=== PATIENT | female | born 2000 | race African-American/Black ===

== ENCOUNTER 2019-04-24 18:16 | Emergency (ER) | payer MEDICAID ==
[~2019-04-24] VITALS: Ht 167.6 cm; Wt 71.0 kg
[2019-04-24 18:32] VITALS: BP 138/79
== END 2019-04-24 23:22 | disposition left against medical advice (07) ==
LOC: ER 18:16
DX: R11.10 Vomiting, unspecified (principal); R53.1 Weakness; R52 Pain, unspecified; Z53.21 Procedure and treatment not carried out due to patient leaving prior to being seen by health care provider

== ENCOUNTER 2019-04-25 15:23 | Emergency (ER) | payer MEDICAID ==
[~2019-04-25] VITALS: Ht 167.6 cm; Wt 71.0 kg
[2019-04-25] MEDS ORDERED: ONDANSETRON 4MG ODT PO NR (18:45)
[2019-04-25 19:50] VITALS: BP 135/71
== END 2019-04-25 19:52 | disposition home or self-care (01) ==
LOC: ER 15:23
DX: R51 Headache (principal); R11.2 Nausea with vomiting, unspecified
CPT/HCPCS: 87804; 99283; Q0162

== ENCOUNTER 2020-03-28 10:50 | Emergency (ER) | payer BC, MEDICAID ==
[~2020-03-28] VITALS: Ht 165.1 cm; Wt 82.0 kg
[2020-03-28 15:55] LABS: BASOPHILS % 0.9 % (0.0-2.0); EOSINOPHILS % 0.6 % (0.0-5.0); HEMATOCRIT. 41.9 % (36.0-48.0); HEMOGLOBIN. 13.7 g/dL (12.0-16.0); MEAN CORPUSCULAR HEMOGLOBIN 27.4 pg (28.0-32.0); MEAN CORPUSCULAR VOLUME 83.7 fL (81.0-99.0); MONOCYTES % 5.4 % (2.0-8.0); NEUTROPHILS % 47.1 % (40.0-76.0); RED BLOOD CELL COUNT 5.01 mill/uL (4.2-5.4)
[2020-03-28 16:02] LABS: CHLORIDE 105 mEq/L (98-107)
[2020-03-28 16:14] LABS: HCG SCREEN NEGATIVE
[2020-03-28] MEDS ORDERED: IOHEXOL-350 100 ML BOTTLE ONE ×2 (22:59→23:57)
[2020-03-29 01:07] VITALS: BP 125/72
== END 2020-03-29 01:08 | disposition home or self-care (01) ==
LOC: ER 11:01
DX: R07.89 Other chest pain (principal); Z86.19 Personal history of other infectious and parasitic diseases
CPT/HCPCS: 36415; 71045; 71275; 80048; 84484; 84703; 85025; 85379; 93005; 93970; 99285; Q9967

== ENCOUNTER 2020-06-14 00:52 | Emergency (ER) | payer BC, MEDICAID ==
[~2020-06-14] VITALS: Ht 167.6 cm; Wt 86.0 kg
[2020-06-14] MEDS ORDERED: KETOROLAC 60MG/2ML VIAL IM STA (02:51)
[2020-06-14] MEDS ORDERED: ONDANSETRON 4MG ODT PO STA (02:51)
[2020-06-14] MEDS ORDERED: AZITHROMYCIN 500 MG TABLET PO ONE (03:00)
[2020-06-14] MEDS ORDERED: LIDOCAINE HCL 1% 20ML VIAL (Pyxis) INJ INFIL ONE (03:00)
[2020-06-14] MEDS ORDERED: CEFTRIAXONE SODIUM 500 MG/VIAL IM ONE (03:00)
[2020-06-14 03:24] VITALS: BP 144/85
[2020-06-14 03:46] LABS: CLARITY URINE CLOUDY (CLEAR); COLOR URINE YELLOW (YELLOW); KETONES URINE TRACE (NEGATIVE); LEUKOCYTE ESTERASE URINE 2+ (NEGATIVE); NITRITE URINE NEGATIVE (NEGATIVE); OCCULT BLOOD URINE NEGATIVE (NEGATIVE); PROTEIN URINE NEGATIVE (NEGATIVE); SPECIFIC GRAVITY URINE 1.031 (1.005-1.030)
[2020-06-14] MEDS ORDERED: DIF15 MT (04:18)
[2020-06-14] MEDS ORDERED: SULF1TAB48 PO (04:18)
[2020-06-14] MEDS ORDERED: IBUP-2029 PO (04:18)
[2020-06-14] MEDS ORDERED: METRONIDAZOLE 500MG TABLET PO NR (04:30)
[2020-06-15 05:12] LABS: HIV SCREEN 4G Non Reactive (Non Reactive)
[2020-06-17 04:06] LABS: NEISSERIA GONORRHOEAE NAA Negative (Negative)
== END 2020-06-14 05:21 | disposition home or self-care (01) ==
LOC: ER 00:52
DX: T74.21XA Adult sexual abuse, confirmed, initial encounter (principal); N39.0 Urinary tract infection, site not specified; N76.0 Acute vaginitis
CPT/HCPCS: 81003; 81025; 87210; 87389; 87491; 87591; 96372; 99284; J0696; J1885; J3490; Q0162; Z7610

== ENCOUNTER 2025-03-01 11:36 | Emergency (ER) | payer MEDICAID ==
[~2025-03-01] VITALS: Ht 167.6 cm; Wt 85.0 kg
[~2025-03-01 11:36] MED LIST: DIF15 MT; IBUP-1455 PO; SULF1TAB48 PO
[2025-03-01 11:47] VITALS: O2SAT 81
[2025-03-01] MEDS: PREDNISONE 20MG TABLET PO ONE (13:11)
[2025-03-01] MEDS: DIPHENHYDRAMINE 50MG/ML VIAL IM ONE (13:11)
[2025-03-01] MEDS ORDERED: P50 MT (13:42)
[2025-03-01] MEDS ORDERED: EPIN0.3P3 IM (13:42)
[2025-03-01] MEDS ORDERED: DIPH50CA41 MT (13:42)
[2025-03-01 13:50] VITALS: BP 122/78; PULSE 90; RESP 16; TEMP 36.7; O2SAT 95
[2025-03-01] MEDS ORDERED: NYST15CR31 TP (14:25)
== END 2025-03-01 13:53 | disposition home or self-care (01) ==
LOC: ER 11:36
DX: T78.40XA Allergy, unspecified, initial encounter (principal); Z79.52 Long term (current) use of systemic steroids; X58.XXXA Exposure to other specified factors, initial encounter
CPT/HCPCS: 99283; 96372; J7512; J1200